=== PATIENT | male | born 1990 | race Asian ===

== ENCOUNTER 2021-11-04 08:00 | Outpatient (CLI) | payer OTHER | END 2021-11-04 23:59 | LOC: LAB 08:00 | PROVIDERS: ATTEND Family Medicine | DX: R53.83 Other fatigue (principal); R53.81 Other malaise; Z20.822 Contact with and (suspected) exposure to COVID-19 ==

== ENCOUNTER 2024-03-14 08:23 | Outpatient (CLI) | payer OTHER ==
--- NOTE | 2024-03-14 12:23 | MRI Report ---
PROCEDURE: Brain WO INDICATIONS: HEADACHE TECHNIQUE: Noncontrast axial T1 spin echo, axial T2 fast spin echo, sagittal and axial FLAIR, coronal T2 fast sp in echo, axial gradient echo, axial diffusion and ADC through the brain. COMPARISON: None. FINDINGS: Image quality: Excellent. CSF Spaces: Basal cisterns are patent. No extra-axial fluid collections. Ventricles are normal in size and shape. Brain: No intracranial masses or hemorrhage. Yi/white matter interface is normal. Brainstem appe ars normal. Diffusion-weighted images demonstrate no acute ischemic insult. No chronic ischemic ins ults. Normal intravascular flow voids are present. Skull and face: Calvarium has normal marrow signal. Orbits appear normal. Sinuses: Mild paranasal sinus mucosal thickening. Mastoids are clear. IMPRESSION: No cause for patient's symptoms is identified. Normal appearance of the brain. Reviewed by: Valdo Zimmer MD on 03/14/2024 12:22 PM PDT Approved by: Valdo Zimmer MD on 03/14/2024 12:22 PM PDT Station ID: [id number]
== END 2024-03-14 08:24 | disposition home or self-care (01) ==
LOC: DI 08:23
PROVIDERS: ATTEND Nurse Practitioner Family
DX: R51.9 Headache, unspecified (principal)

== ENCOUNTER 2024-06-23 14:37 | Outpatient (CLI) | payer OTHER ==
[2024-06-23 18:08] LABS: BASOPHILS # (AUTO) 0.1 10^3/uL (0.0-0.1); BASOPHILS % (AUTO) 0.9 %; EOSINOPHILS # (AUTO) 0.2 10^3/uL (0.0-0.7); EOSINOPHILS % (AUTO) 3.7 %; HCT - HEMATOCRIT 44.8 % (42.0-52.0); HGB - HEMOGLOBIN 14.6 g/dL (14.0-18.0); LYMPHOCYTES # (AUTO) 2.8 10^3/uL (1.5-3.5); LYMPHOCYTES % (AUTO) 48.4 %; MEAN CORPUSCULAR HEMOGLOBIN 29.6 pg (27.0-31.0); MEAN CORPUSCULAR HGB CONC 32.6 g/dL (32.0-36.0); MEAN CORPUSCULAR VOLUME 90.7 fL (80.0-94.0); MEAN PLATELET VOLUME 9.5 fL (7.4-11.4); MONOCYTES # (AUTO) 0.4 10^3/uL (0.0-1.0); MONOCYTES % (AUTO) 7.2 %; NEUTROPHILS # (AUTO) 2.3 10^3/uL (1.5-6.6); NEUTROPHILS % (AUTO) 39.6 %; PLT - PLATELET COUNT 235 10^3/uL (130-450); RED BLOOD COUNT 4.94 10^6/uL (4.70-6.10); RED CELL DISTRIBUTION WIDTH 12.7 % (12.0-15.0); WHITE BLOOD COUNT 5.7 x10^3/uL (4.8-10.8)
[2024-06-23 18:47] LABS: CALCIUM 9.7 mg/dL (8.5-10.3); CREATININE 1.1 mg/dL (0.6-1.3)
== END 2024-06-23 14:38 | disposition home or self-care (01) ==
LOC: LAB.N 14:37
PROVIDERS: ATTEND Orthopaedic Surgery Orthopaedic Surgery of the Spine
DX: Z01.812 Encounter for preprocedural laboratory examination (principal)
CPT/HCPCS: 36415; 80048; 85025

== ENCOUNTER 2024-07-07 10:00 | Outpatient (CLI) | payer OTHER ==
--- NOTE | 2024-07-08 10:51 | MRI Report ---
PROCEDURE: Thoracic Spine WO INDICATIONS: DORSALGIA TECHNIQUE: Multiplanar multisequence MR images of the thoracic spine was obtained without contrast COMPARISON: None FINDINGS: Alignment and Curvature: There is normal bony alignment. Bone Marrow: Marrow is of normal overall signal. No acute vertebral body compression fractures. Spinal Cord: Visualized spinal cord is normal in size and signal. Paraspinal Soft Tissues: No paravertebral masses. Miscellaneous: On axial images, central canal and foramina appear widely patent at all scanned level s. IMPRESSION: Normal MRI of the thoracic spine Reviewed by: Jordan Garza MD on 07/08/2024 9:50 AM BRIA Approved by: Jordan Garza MD on 07/08/2024 9:50 AM BRIA Station ID: [id number]
== END 2024-07-07 10:01 | disposition home or self-care (01) ==
LOC: DI 10:00
PROVIDERS: ATTEND Nurse Practitioner Family
DX: M54.9 Dorsalgia, unspecified (principal); M54.16 Radiculopathy, lumbar region